=== PATIENT | male | born 1950 | race Caucasian/White ===

== ENCOUNTER 2016-11-25 08:50 | Emergency (ER) | payer OTHER ==
[~2016-11-25] VITALS: Ht 180.3 cm; Wt 105.0 kg
[2016-11-25 08:55] VITALS: TEMP 36.5; Ht 180.3 cm; Wt 105.0 kg
[2016-11-25] MEDS ORDERED: XYLOCAINE 1%/SOD BICARB 20 ML VIAL INFIL STA (09:30)
--- NOTE | 2016-11-25 09:56 | EMERGENCY ROOM VISIT NOTE ---
History Report prepared by Marva: Jacques Hewitt Under the Supervision of: Dr. Tung Paz M.D. First contact with patient: 09:29 Chief Complaint: LACERATION/CUT (SUT/DERMABOND) Stated Complaint: CUT FINGER Nursing Triage Summary: lac extending across left pad of the thumb with a table saw bleeding controlled no blod thinners History of Present Illness The patient is a 66 year old male who presents to the Emergency Room with complaints of a sudden injury to his left thumb that occurred prior to arrival. He rates his discomfort as a 5/10 in severity. The patient reports that he was working with a table saw without gloves when he accidentally cut his left thumb. He states that he was able to stop the bleeding. The patient admits that he has been experiencing diaphoresis. He reports that he is left handed. The patient denies that he is taking any blood thinners or any other medications. He reports that he is unaware of his last tetanus shot, but he believes that he had one less than ten years ago. The patient denies having Diabetes Mellitus. Source of History: patient Onset: prior to arrival Position: other (left thumb) Symptom Intensity: Timing: other (sudden) Associated Symptoms: + diaphoresis Review of Systems See HPI for pertinent positives & negatives. A total of 10 systems reviewed and were otherwise negative. Past Medical & Surgical Medical Problems: (1) Cholecystitis, acute with cholelithiasis (2) Kidney stones Surgical Problems: (1) H/O lithotripsy Social History Smoking Status: Never Smoker Smokeless Tobacco Use: No Alcohol Use: occasionally Drug Use: none Marital Status: Housing Status: lives with family Occupation Status: retired Current/Historical Medications No Active Prescriptions or Reported Meds Allergies Coded Allergies: No Known Allergies (Unverified , 11/25/16) Physical Exam Vital Signs Date Time Temp Pulse Resp B/P (MAP) Pulse Ox O2 Delivery O2 Flow Rate FiO2 11/25/16 10:36 58 16 113/74 98 11/25/16 08:55 36.5 55 18 118/65 97 Physical Exam GENERAL: Patient is a healthy-appearing well-nourished [] HEAD: Normocephalic atraumatic EYES: Ocular movements intact pupils equal and react to light OROPHARYNX mucous membranes are moist no exudates present no erythema or edema present NECK: Supple no nuchal rigidity CHEST: Good equal expansion LUNGS: Clear and equal to auscultation CARDIAC: Normal S1 and S2 ABDOMEN: Soft nontender no guarding BACK: No CVA tenderness EXTREMITIES: 2.6 laceration to left thumb. Good movement, Neurovascular system intact. Good circulation. No pain upon palpation normal muscle strength in all groups no clubbing cyanosis or edema NEURO: Patient is following commands and answering questions appropriately. Alert and oriented x3 Cranial Nerves 2-12 grossly intact Medical Decision & Procedures Medications Administered Medications (Trade) Dose Ordered Sig/Alanis Route Start Time Stop Time Status Last Admin Dose Admin Lidocaine HCl (Buffered Lidocaine 1% Inj) 20 ml ONE STAT INFIL 11/25/16 09:30 11/25/16 09:31 DC 11/25/16 09:38 20 ML Diphtheria/ Pertussis/Tetanus Vacc (Adacel Inj) 0.5 ml ONCE ONCE IM. 11/25/16 10:15 11/25/16 10:16 DC 11/25/16 10:28 0.5 ML Procedure Location: Left thumb Total length: 2.6 cm Complexity: simple, linear Verbal consent was obtained after the risks and benefits were explained, including but not limited to bleeding, scarring, infection, pain, and bone/joint /nerve damage. At this time, the risks of the procedure are less than the risks of NOT performing the procedure. A time out was taken and the correct patient and site identified. The skin was prepped with betadine. The target area was anesthetized with 20 ml of 1% lidocaine without epinephrine. Copious irrigation was performed using 500 ccs of normal saline. The skin was re-prepped with betadine and a sterile field set. The wound was explored for foreign bodies and none found. Examination revealed no injury to deep structures such as tendons, bone, or significant blood vessels. Debridement was not performed. The wound edges were approximated using 8, 4-0 simple interrupted nylon sutures. Hemostasis and excellent approximation was achieved. Antibacterial ointment and a sterile dressing applied. Detailed wound care instructions and signs and symptoms of infection reviewed with the patient and . No complications and the patient tolerated the procedure well. ED Course 929: Lidocaine HCl 20 ml INFIL. 932: Past medical records reviewed. The patient was evaluated in room A02. A complete history and physical examination was performed. Medication Reconciliation: I attest that I have personally reviewed the patient' s current medication list Blood Pressure Screening: Patient was found to have normal b lood pressure on screening and does not require follow up. 0936: I performed a laceration repair on the patient's left thumb. See procedure notes for further detail. 1015: Adacel Injection 0.5 ml IM. 1030: Upon reexamination the patient is doing well. I discussed results and treatment plan with the patient. He verbalizes agreement and understanding. The patient is ready for discharge. Medical Decision The differential diagnoses includes but is not limited to: laceration This is a 66-year-old male who presents emergency department complaining of laceration to the thumb. This was cleaned and washed out as above. There is no evidence of tendon involvement. The patient was given a tetanus shot in the emergency department and placed in a splint. I encouraged follow-up to have the sutures removed in 7-10 days. Patient and are in agreement with the treatment plan. Impression Primary Impression: Laceration of left thumb Scribe Attestation The scribe's documentation has been prepared under my direction and personally reviewed by me in its entirety. I confirm that the note above accurately reflects all work, treatment, procedures, and medical decision making performed by me. Departure Information Dispostion Home / Self-Care Prescriptions No Active Prescriptions or Reported Meds Referrals No Doctor, Assigned (PCP) Forms HOME CARE DOCUMENTATION FORM, IMPORTANT VISIT INFORMATION Patient Instructions ED Laceration Ext Sutr Stap Tape, [facility] Additional Instructions Sutures out in 7-10 days Apply bacitracin to sutures twice daily You have been examined and treated today on an emergency basis only. This is not a substitute for, or an effort to provide, complete comprehensive medical care. It is impossible to recognize and treat all injuries or illnesses in a single emergency department visit. It is therefore important that you follow up closely with Dr Avendano. Call as soon as possible for an appointment. Thank you for your time and consideration. I look forward to speaking with you again soon. Please don't hesitate to call us if you have any questions. Problem Qualifiers Primary Impression: Laceration of left thumb Encounter type: initial encounter Damage to nail status: with damage Foreign body presence: without foreign body Qualified Codes: S61.112A - Laceration without foreign body of left thumb with damage to nail, initial encounter
[2016-11-25] MEDS ORDERED: DIPHTHERIA/TETANUS/PERTUSSIS 0.5 ML SYR/VIAL IM. ONE (10:15)
[2016-11-25 10:36] VITALS: BP 113/74; PULSE 58; O2SAT 98
== END 2016-11-25 10:37 | disposition home or self-care (01) ==
LOC: C.EDB 08:51 → C.EDA 10:37
DX: S61.012A Laceration without foreign body of left thumb without damage to nail, initial encounter (principal); W31.2XXA Contact with powered woodworking and forming machines, initial encounter; Z23 Encounter for immunization; Z87.442 Personal history of urinary calculi; Z87.19 Personal history of other diseases of the digestive system; Z98.890 Other specified postprocedural states